=== PATIENT | male | born 1975 | race Caucasian/White ===

== ENCOUNTER 2018-10-26 12:59 | Emergency (ER) | payer OTHER ==
[~2018-10-26] VITALS: Ht 177.8 cm; Wt 90.7 kg
== END 2018-10-26 17:37 | disposition home or self-care (01) ==
LOC: EDBD 12:59 → ER 12:59 → CPU-OBS 13:41 → ER 17:37
DX: R07.89 Other chest pain (principal); E86.0 Dehydration; F10.129 Alcohol abuse with intoxication, unspecified
CPT/HCPCS: G0378; G0379; 93005